=== PATIENT | female | born 1960 | race Caucasian/White ===

== ENCOUNTER → 2018-09-07 | Outpatient (CLI) | payer OTHER ==
--- NOTE | 2018-09-13 12:39 | Diagnostic Imaging Report ---
INDICATION: Malignant neoplasm of the cervix, subsequent restaging. TECHNIQUE: Serum blood glucose level at the time of injection is 130 mg/dL. Patient was administered 13.6 mCi F-18 FDG intravenously in the left antecubital location and PET imaging from the top of the skull through the mid thighs was performed. Noncontrast CT was also performed for attenuation correction and anatomic correlation. COMPARISON: Correlation is made with outside PET study performed on 11/10/2016. FINDINGS: Symmetric activity throughout the brain is identified. There is physiologic activity within the soft tissues of the neck. Multiple sites of muscular uptake are identified bilaterally. No definite pulmonary hypermetabolism is seen. No mediastinal or hilar hypermetabolism is identified. Imaging through the abdomen and pelvis demonstrates physiologic activity within the GI and tracts. There appears to be GI tract excretion of FDG. No suspicious region of hypermetabolism is identified. IMPRESSION: Essentially unremarkable PET/CT study. No suspicious hypermetabolism is identified. Dictated by: Dictated on workstation # [id number]
== END ==
LOC: RAD 09:05
PROVIDERS: ATTEND Radiology Radiation Oncology
DX: C53.9 Malignant neoplasm of cervix uteri, unspecified (principal)